=== PATIENT | male | born 1985 | race Caucasian/White ===

== ENCOUNTER 2020-01-14 18:56 | Emergency (ER) | payer OTHER ==
[~2020-01-14] VITALS: Ht 182.9 cm; Wt 86.2 kg
[2020-01-14 23:12] VITALS: BP 127/80
== END 2020-01-14 23:13 | disposition left against medical advice (07) ==
LOC: EDBD 18:56 → M.ERS 18:56
DX: S92.102A Unspecified fracture of left talus, initial encounter for closed fracture (principal); F17.210 Nicotine dependence, cigarettes, uncomplicated; W11.XXXA Fall on and from ladder, initial encounter; Y93.89 Activity, other specified; Y92.89 Other specified places as the place of occurrence of the external cause; Y99.8 Other external cause status